=== PATIENT | female | born 1985 | race Caucasian/White ===

== ENCOUNTER → 2017-02-20 | Outpatient (CLI) | payer MEDICARE | END | disposition home or self-care (01) | LOC: PTH.S 08:21 | DX: Z48.23 Encounter for aftercare following liver transplant (principal); Z94.4 Liver transplant status; Z79.899 Other long term (current) drug therapy ==

== ENCOUNTER → 2017-04-17 | Outpatient (CLI) | payer MEDICARE | END | disposition home or self-care (01) | LOC: PTH.S 08:24 | DX: Z48.23 Encounter for aftercare following liver transplant (principal); Z94.4 Liver transplant status; Z79.899 Other long term (current) drug therapy ==